=== PATIENT | female | born 1995 | race Caucasian/White ===

== ENCOUNTER 2024-06-22 17:37 | Outpatient (CLI) | payer BC | END 2024-06-22 18:35 | disposition home or self-care (01) | LOC: FBPOP 17:37 | PROVIDERS: ATTEND Obstetrics & Gynecology | CPT/HCPCS: 59025; 99213 ==

== ENCOUNTER 2024-09-01 06:15 | Inpatient (IN) | payer BC ==
[2024-09-01] MEDS ORDERED: TERBUTALINE 1 MG/ML VIAL SQ PRN (07:08)
[2024-09-01] MEDS ORDERED: miSOPROStoL 200 MCG TAB RECTAL PRN (07:08)
[2024-09-01] MEDS ORDERED: METHYLERGONOVINE 0.2 MG/ML 1 ML AMP IM PRN (07:08)
[2024-09-01] MEDS ORDERED: CARBOPROST TROMETHAMINE 250 MCG/ML 1 ML AMP IM PRN (07:08)
[2024-09-01] MEDS ORDERED: miSOPROStoL 200 MCG TAB PO PRN (07:08)
[2024-09-01] MEDS ORDERED: TRANEXAMIC 1,000 MG/100ML-NACL 1,000 MG in EMPTY BAG 1 BAG IV PRN (07:08)
[2024-09-01] MEDS ORDERED: OXYTOCIN 10 UNIT/ML 1 ML VIAL IM PRN (07:08)
[2024-09-01] MEDS: OXYTOCIN 30 UNITS/500 ML NS 30 UNIT in SALINE 1 500ML.BAG IV SCH (07:15)
[2024-09-01 07:31] LABS: Basophils % (A) 0 %; Eosinophils # (A) 0.1 k/uL (0-0.7); Eosinophils % (A) 1 %; HCT 35.9 % (34.0-46.0); HGB 12.4 gm/dL (11.4-16.0); Lymphocytes # (A) 2.3 k/uL (1.0-4.8); Lymphocytes % (A) 19 %; MCH 30.6 pg (25.0-35.0); MCHC 34.4 g/dL (31.0-37.0); MCV 88.9 fL (80.0-100.0); Mean Platelet Volume 7.8; Monocytes # (A) 0.6 k/uL (0-1.0); Monocytes % (A) 5 %; Neutrophils # (A) 8.9 k/uL (1.3-7.7); Neutrophils % (A) 74 %; Platelet Count 245 k/uL (150-450); RBC 4.04 m/uL (3.80-5.40); RDW 13.5 % (11.5-15.5)
[2024-09-01] MEDS: LACTATED RINGERS 1,000 ML IV SCH (07:54)
--- NOTE | 2024-09-01 09:18 | P.HPOB ---
History of Present Illness H&P Date: 09/01/24 Chief Complaint: IUP at 39 and 0, SGA This is a 28-year-old 1 para 0 at 39-0/7 weeks that presents to labor and delivery for induction of labor secondary to small for gestational age. Patient was noted to be intrauterine growth restriction for most of the and approximately 1 month ago EFW noted to be 13 percentile. Patient has had normal testing. Patient does note good movement denies contractions vaginal bleeding or loss of fluid this morning. Review of Systems Constitutional: Denies chills, Denies fatigue, Denies fever Ears, nose, mouth and throat: Denies headache Cardiovascular: Reports leg edema Respiratory: Denies dyspnea Gastrointestinal: Denies constipation, Denies diarrhea, Denies nausea, Denies vomiting Genitourinary: Reports Past Medical History Past Medical History: Renal Disease Additional Past Medical History / Comment(s): a lot of UTIs as a kid History of Any Multi-Drug Resistant Organisms: None Reported Additional Past Surgical History / Comment(s): teeth removal Past Anesthesia/Blood Transfusion Reactions: No Reported Reaction Past Psychological History: No Psychological Hx Reported Smoking Status: Never smoker Past Alcohol Use History: None Reported Past Drug Use History: None Reported Medications and Allergies Home Medications Medication Instructions Recorded Confirmed Type Aspirin 81 mg PO DAILY 09/01/24 09/01/24 History Multivit with Calcium,Iron,Min 1 each PO DAILY 09/01/24 09/01/24 History [Women's Multivitamin] Allergies Allergy/AdvReac Type Severity Reaction Status Date / Time glucose AdvReac Diarrhea Verified 09/01/24 06:48 Milk Containing Products AdvReac Diarrhea Verified 09/01/24 06:48 (Dairy) [Dairy] Exam Osteopathic Statement: *. No significant issues noted on an osteopathic structural exam other than those noted in the History and Physical/Consult. Vital Signs Temp Pulse Resp BP Pulse Ox 09/01/24 06:50 98.9 F 83 18 125/72 98 Intake and Output 08/31/24 09/01/24 09/01/24 22:59 06:59 14:59 Other: Weight 86.183 kg Targeted physical exam was performed this date in general is a well-nourished well-developed female in no acute distress, breathing is nonlabored, heart has a regular and rhythm, abdomen is gravid and appropriate for gestational age, on cervical exam she is 4/70/-2 station amniotomy was performed and clear fluid was obtained. heart tones noted to be category 1 and she is hoang every 3 to 4 minutes. Results Result Diagrams: 09/01/24 06:43 Abnormal Lab Results - Last 24 Hours (Table) 09/01/24 Range/Units 06:43 WBC 12.0 H (3.8-10.6) k/uL Neutrophils # 8.9 H (1.3-7.7) k/uL Assessment and Plan (1) Term Current Visit: Yes Status: Acute Code(s): Z34.90 - ENCNTR FOR SUPRVSN OF NOR MAL , UNSP, UNSP TRIMESTER SNOMED Code(s): 73050748 (2) Small for gestational age fetus Current Visit: Yes Status: Acute Code(s): OWM2927 - SNOMED Code(s): 214494056 Plan: 28-year-old 1 para 0 at 39-0/7 weeks that presents for induction of labor secondary to small for gestational age, last estimated weight approximately 13th percentile. Patient is admitted and Pitocin induction of labor has begun. Amniotomy is performed and clear fluid was obtained. Options for analgesia are discussed including nitrous, Nubain, epidural. Patient will consider.
[2024-09-01] MEDS: LIDOCAINE 0.5% (PF) 5 MG/ML (50 ML SDV) SQ PRN (13:59)
[2024-09-01] MEDS ORDERED: HYDROCORTISONE 2.5% RECTAL CREAM 30 GM TUBE RECTAL PRN (14:14)
[2024-09-01] MEDS ORDERED: diphenhydrAMINE 25 MG CAP PO PRN (14:14)
[2024-09-01] MEDS ORDERED: SIMETHICONE 80 MG CHEWABLE PO PRN (14:14)
[2024-09-01] MEDS ORDERED: diphenhydrAMINE 50 MG/ML 1 ML VIAL IVP PRN ×2 (14:14)
[2024-09-01] MEDS ORDERED: BENZOCAINE/MENTHOL SPRAY 1 GM/SPRAY AEROSOL TOPICAL PRN (14:14)
[2024-09-01] MEDS ORDERED: diphenhydrAMINE 50 MG CAP PO PRN (14:14)
[2024-09-01] MEDS ORDERED: ZOLPIDEM 5 MG TAB PO PRN (14:14)
[2024-09-01] MEDS ORDERED: LANOLIN CREAM 1 GM TUBE TOPICAL PRN (14:14)
--- NOTE | 2024-09-01 14:17 | P.PROBDLV ---
Vaginal Delivery Note - . Vaginal Delivery Note: 28-year-old 1 para 0 at 39-0/7 weeks that presented to labor and delivery this morning for scheduled induction of labor secondary to SGA. Patient was admitted and Pitocin induction of labor was begun. Patient underwent amniotomy and clear fluid was obtained. Patient progressed through labor using nitrous for pain control. Patient progressed to complete began pushing and had a normal spontaneous vaginal delivery of a viable female infant at 1353, weight of 6 pounds 12 ounces, Apgars of 9 and 9 at 1 and 5 minutes respectively. After a 2-minute delay the umbilical cord was doubly clamped and cut, spontaneous cry was noted at . Cord blood was then taken. The placenta was delivered spontaneously intact with a three-vessel cord being noted. Inspection the patient's vaginal vault second-degree midline laceration was appreciated. This was injected with lidocaine and repaired in the usual fashion with 3-0 Rapide. Hemostasis was noted after closure. Uterus was noted be firm below the umbilicus. Estimated blood loss 300 cc. All counts were noted be correct x 2. Patient and tolerated delivery well and are resting comfortably.
[2024-09-01] MEDS: IBUPROFEN 800 MG TAB PO SCH ×2 (14:27→22:16)
[2024-09-01] MEDS: ACETAMINOPHEN TAB 500 MG TAB PO SCH (18:34)
[2024-09-01] MEDS: SENNOSIDES-DOCUSATE SODIUM 1 EACH TAB PO SCH (22:16)
[2024-09-02] MEDS: ACETAMINOPHEN TAB 500 MG TAB PO SCH (02:25)
--- NOTE | 2024-09-02 09:20 | P.DS ---
Providers Date of admission: 09/01/24 06:20 Expected date of discharge: 09/02/24 Attending physician: Isabel Gar Primary care physician: Stated None - Discharge Diagnosis(es) (1) Term Current Visit: Yes Status: Acute (2) Small for gestational age fetus Current Visit: Yes Status: Acute (3) Obstetrical laceration, second degree Current Visit: Yes Status: Acute (4) Status post normal vaginal delivery Current Visit: Yes Status: Acute Hospital Course: 28-year-old 1 now para 1 presented to labor and delivery yesterday on 09/01 for scheduled induction of labor secondary to for gestational age at 39- 0/7 weeks. Patient had been receiving routine care that have been complicated by a diagnosis of intrauterine growth restriction. Approximately 1 month ago patient had an ultrasound revealing an estimated weight of 13th percentile. Patient has had normal testing. For full details in this patient please the dictated history and physical. Patient was admitted to labor and delivery and Pitocin induction of labor was begun. Patient underwent amniotomy and clear fluid was obtained. Patient progressed to complete began pushing and had a normal spontaneous vaginal delivery of a viable female infant at 1353, weight of 6 pounds 12 ounces, Apgars of 9 and 9 at 1 and 5 minutes respectively. Patient did sustain a second-degree midline laceration which was repaired in the usual fashion with 3-0 Rapide after delivery. Patient's course has been uneventful. On this day #1 she is ambulating and voiding without difficulty. She is tolerating a regular diet without nausea or vomiting. She states her pain is well-controlled. She is feeling well and is considering discharge home later today. Patient Condition at Discharge: Good Plan - Discharge Summary New Discharge Prescriptions: No Action Aspirin 81 mg PO DAILY Multivit with Calcium,Iron,Min [Women's Multivitamin] 1 each PO DAILY Discharge Medication List Aspirin 81 mg PO DAILY 09/01/24 [History] Multivit with Calcium,Iron,Min [Women's Multivitamin] 1 each PO DAILY 09/01/24 [History] Follow up Appointment(s)/Referral(s): Isabel Gar DO [Doctor of Osteopathic Medicine] - 10/17/24 1:15 pm Patient Instructions/Handouts: Vaginal Delivery (DC), Vaginal Delivery (GEN) Activity/Diet/Wound Care/Special Instructions: No tub baths or intercourse until 6 weeks . [id number] ibuprofen 600 mg or 3 tablets every 6 hours as needed for pain. Bleeding precautions reviewed. Discharge Disposition: HOME SELF-CARE
[2024-09-02] MEDS: MULTIVITAMINS, THERA 1 EACH TAB PO SCH (10:04)
[2024-09-03 08:43] VITALS: BP 118/74; PULSE 68; RESP 16; TEMP 97.7
== END 2024-09-03 14:30 | disposition home or self-care (01) | DRG 807 ==
LOC: EDSTATUS 06:15 → 4FBP 06:20
PROVIDERS: ADMIT Obstetrics & Gynecology Obstetrics; ATTEND Obstetrics & Gynecology Obstetrics
PROC: 10E0XZZ Delivery of Products of Conception, External Approach (ICD-10-PCS; principal; 2024-09-01)
PROC: 0KQM0ZZ Repair Perineum Muscle, Open Approach (ICD-10-PCS; 2024-09-01)
PROC: 10907ZC Drainage of Amniotic Fluid, Therapeutic from Products of Conception, Via Natural or Artificial Opening (ICD-10-PCS; 2024-09-01)
DX: O70.1 Second degree perineal laceration during delivery (principal); Z37.0 Single live birth; Z3A.39 39 weeks gestation of pregnancy; Z79.82 Long term (current) use of aspirin
CPT/HCPCS: 85025; 86850; 86900; 86901

== ENCOUNTER → 2025-01-26 | Outpatient (CLI) | payer BC ==
--- NOTE | 2025-01-26 08:18 | USB ---
Reason for Exam: Clinical finding. Technique: Method: Targeted. Findings: The area of palpable concern of the left breast, the medial section of the breast of the left breast, the axilla of the left breast and the retroareolar of the left breast were scanned. At the site of clinical concern which correlates to the left 7:00 position 7 cm from the nipple there is a hypoechoic area noted within the subcutaneous tissues measuring 2.6 x 6 cm with internal fluid movement. This is felt to reflect an abscess with focal mastitis. Appropriate therapeutic intervention is recommended with short-term follow-up advised in 4 weeks. Overall Assessment: Probably benign, BI-RAD 3 Management: Diagnostic Breast Ultrasound of the left breast in 1 month. A clinical breast exam by your physician is recommended on an annual basis and results should be correlated with mammographic findings. This exam should not preclude additional follow-up of suspicious palpable abnormalities. Results were given to the patient verbally at the time of exam. [facility], , 01/26/2025 8:15 AM. Electronically signed and approved by: Tobi Arzate M.D. Radiologis
== END | disposition home or self-care (01) ==
LOC: RADUSWWP 07:29
PROVIDERS: ATTEND Obstetrics & Gynecology Obstetrics
DX: R68.89 Other general symptoms and signs (principal)

== ENCOUNTER → 2025-02-14 | Outpatient (CLI) | payer BC ==
--- NOTE | 2025-02-14 08:12 | USB ---
Reason for Exam: Follow-up at short interval from prior study. Technique: Method: Targeted. Prior Study Comparison: 01/26/2025 Left US breast limited LT, [facility]. Findings: The area of palpable concern of the left breast, the axilla of the left breast and the retroareolar of the left breast were scanned. Previously noted area of abscess with focal mastitis is much improved in the interval. There continues to be subcutaneous edema without focal collection. Additional follow-up in 4 weeks is advised for complete resolution purposes. No additional masses present. Overall Assessment: Probably benign, BI-RAD 3 Management: Diagnostic Breast Ultrasound of the left breast in 1 month. A clinical breast exam by your physician is recommended on an annual basis and results should be correlated with mammographic findings. This exam should not preclude additional follow-up of suspicious palpable abnormalities. Results were given to the patient verbally at the time of exam. [facility] [place] [facility], , 02/14/2025 8:09 AM. Electronically signed and approved by: Tobi Arzate M.D. Radiologis
== END | disposition home or self-care (01) ==
LOC: RADUSWWP 07:42
PROVIDERS: ATTEND Obstetrics & Gynecology Obstetrics
DX: R92.8 Other abnormal and inconclusive findings on diagnostic imaging of breast (principal); N61.1 Abscess of the breast and nipple; R68.89 Other general symptoms and signs

== ENCOUNTER → 2025-04-05 | Outpatient (CLI) | payer BC ==
--- NOTE | 2025-04-05 07:39 | USB ---
Reason for Exam: Follow-up at short interval from prior study. Technique: Method: Targeted. Findings: The lower section of the breast of the left breast, the axilla of the left breast and the retroareolar of the left breast were scanned. Technique utilized:US breast limited LT Image; Ultrasound imaging of: Area of concern, retroareolar region and axilla. Left breast 7:00 12 cm from the nipple. Decrease in area on prior exam suspected be secondary to mastoiditis. Now measuring up to 2.5 cm in length, previously 3.1 cm and located up to 2 mm deep. This is located immediately within the epidermis and subcutaneous tissues below the epidermis. No evidence for organizing fluid collection or suspicious mass. Overall Assessment: Benign, BI-RAD 2 Management: Screening Mammogram of both breasts in 1 year. Consider dermatologic punch biopsy. A clinical breast exam by your physician is recommended on an annual basis and results should be correlated with mammographic findings. This exam should not preclude additional follow-up of suspicious palpable abnormalities. Results were given to the patient verbally at the time of exam. [facility], , 04/05/2025 7:36 AM. Electronically signed and approved by: Scott Sampson DO
== END | disposition home or self-care (01) ==
LOC: RADUSWWP 03-20 07:38
PROVIDERS: ATTEND Obstetrics & Gynecology Obstetrics
DX: Z53.9 Procedure and treatment not carried out, unspecified reason (principal)